=== PATIENT | female | born 1990 | race Caucasian/White ===

== ENCOUNTER 2021-07-15 11:14 | Inpatient (IN) | payer BC ==
[2021-07-15] MEDS ORDERED: Acetaminophen 500 MG TAB PO PRN (11:24)
[2021-07-15] MEDS ORDERED: Ondansetron PF 4 MG/2 ML Vial IVP PRN (11:24)
[2021-07-15] MEDS ORDERED: Promethazine HCl 25 MG/ML VIAL IM PRN (11:24)
[2021-07-15 12:09] VITALS: BMI 32.4
[2021-07-15] MEDS: hydrALAZINE 20 MG/ML VIAL SLOW IVP PRN ×3 (12:45→15:44)
[2021-07-15] MEDS: Lactated Ringer's 1,000 ML IV SCH (12:55)
[2021-07-15] MEDS ORDERED: Labetalol HCl 100 MG/20 ML VIAL SLOW IVP SCH (13:15)
[2021-07-15] MEDS ORDERED: Labetalol HCl 100 MG/20 ML VIAL ONE (13:16)
[2021-07-15 13:17] LABS: Mean Corpuscular Hemoglobin 31.3 pg (27.0-33.0); Mean Corpuscular Volume 89.5 fl (81.6-98.3); Mean Platelet Volume 9.8 fl (7.4-10.4); Platelet Count 220 10x3/uL (150-450); RBC Distribution Width 12.7 % (11.5-14.5); Red Blood Cell (RBC) Count 3.51 10x6/uL (3.90-5.03); White Blood Cell (WBC) Count 9.9 10x3/uL (3.5-10.5)
[2021-07-15 13:52] LABS: Syphilis Antibody Nonreactive (Nonreactive); Syphilis Antibody Index 0.04 S/CO (<1.00 Non-Reactive)
[2021-07-15 13:52] LABS: HIV (1/2) Antibody/Antigen Non-Reactive (NonReactive); HIV 1/2 INDEX 0.08 S/CO (<1.00); Hep B Surf Ag Non-Reactive S/CO (NonReactive)
[2021-07-15 14:03] LABS: HBSAg Index 0.22 S/CO (0-0.99)
[2021-07-15 14:21] LABS: Uric Acid 4.9 mg/dL (2.6-6.0)
[2021-07-15 14:57] LABS: Creatinine, Urine Less than 20.00 mg/dL (47-110); Protein, Urine Random Quant Less than 10 mg/dL (1-14)
[2021-07-15] MEDS ORDERED: Labetalol HCl 200 MG TAB PO SCH (15:30)
[2021-07-15 15:35] LABS: SARS-CoV-2 NAA Rapid Test Not Detected (NotDetected)
[2021-07-15] MEDS ORDERED: Lidocaine 1% (PF) 30 ML VIAL SC PRN (15:37)
[2021-07-15] MEDS: Labetalol HCl 200 MG TAB PO SCH ×2 (15:43→23:34)
[2021-07-15] MEDS ORDERED: NS w/ Oxytocin 30 units 500 ML IV SCH ×2 (15:45)
[2021-07-15] MEDS ORDERED: Penicillin G Potassium 5 MILL.UNITS in Sodium Chloride 0.9% 100 ML IVPB SCH (17:00)
[2021-07-15 17:07] LABS: Hemoglobin 10.7 g/dL (12.0-15.5); Mean Corpuscular HGB CONC 35.3 g/dL (32.0-36.0); Mean Corpuscular Hemoglobin 31.6 pg (27.0-33.0); Mean Corpuscular Volume 89.4 fl (81.6-98.3); Mean Platelet Volume 9.8 fl (7.4-10.4); Platelet Count 182 10x3/uL (150-450); RBC Distribution Width 12.6 % (11.5-14.5); Red Blood Cell (RBC) Count 3.39 10x6/uL (3.90-5.03); White Blood Cell (WBC) Count 11.1 10x3/uL (3.5-10.5)
[2021-07-15 18:05] LABS: Syphilis Antibody Nonreactive (Nonreactive); Syphilis Antibody Index 0.04 S/CO (<1.00 Non-Reactive)
[2021-07-15 18:05] LABS: Hep B Surf Ag Non-Reactive S/CO (NonReactive)
[2021-07-15 18:11] LABS: HBSAg Index 0.21 S/CO (0-0.99)
[2021-07-15] MEDS ORDERED: Sodium Chloride 0.9% 50 ML ONE (21:26)
[2021-07-15] MEDS: Penicillin G Potassium 2.5 MILL.UNITS in Sodium Chloride 0.9% 50 ML IVPB SCH (21:35)
[2021-07-15] MEDS: Misoprostol 100 MCG TAB VAG SCH (22:35)
[2021-07-16] MEDS: Misoprostol 100 MCG TAB VAG SCH ×4 (01:45→21:21)
[2021-07-16] MEDS: Penicillin G Potassium 2.5 MILL.UNITS in Sodium Chloride 0.9% 50 ML IVPB SCH (01:45)
[2021-07-16] MEDS: Penicillin G 2.5 MILL.units 2.5 MILL.UNITS in Premix Bag 1 BAG IVPB SCH ×2 (05:48→21:21)
[2021-07-16] MEDS ORDERED: Morphine PF 10 MG/10 ML VIAL ONE (09:45)
[2021-07-16] MEDS ORDERED: Phenylephrine 10 MG/ML VIAL ONE (09:45)
[2021-07-16] MEDS ORDERED: Ondansetron PF 4 MG/2 ML Vial ONE (09:45)
[2021-07-16] MEDS ORDERED: Ketorolac Tromethamine 30 MG/ML VIAL ONE (09:45)
[2021-07-16] MEDS ORDERED: Fentanyl 100 MCG/2 ML VIAL ONE (09:45)
[2021-07-16] MEDS ORDERED: Oxytocin 10 UNITS/ML VIAL ONE (09:45)
[2021-07-16] MEDS ORDERED: Promethazine HCl 25 MG SUPP PR PRN (11:20)
[2021-07-16] MEDS ORDERED: Ondansetron PF 4 MG/2 ML Vial IVP PRN ×2 (11:20→13:24)
[2021-07-16] MEDS ORDERED: Naloxone HCl 0.4 mg/ml Vial IV PRN (11:20)
[2021-07-16] MEDS ORDERED: diphenhydrAMINE 50 MG/ML VIAL IVP PRN (11:20)
[2021-07-16] MEDS ORDERED: Hydrocerin (Eucerin) Cream 120 gm Jar TOP PRN (11:20)
[2021-07-16] MEDS ORDERED: HYDROmorphone 2 MG/ML VIAL SLOW IVP PRN (11:20)
[2021-07-16] MEDS ORDERED: Ondansetron HCl/PF 4 MG/2 ML Vial IVP PRN (11:20)
[2021-07-16] MEDS ORDERED: Fentanyl 100 MCG/2 ML VIAL SLOW IVP PRN (11:20)
[2021-07-16] MEDS ORDERED: Meperidine HCl/PF 25 MG/ML VIAL SLOW IVP PRN (11:20)
[2021-07-16] MEDS ORDERED: Naloxone HCl 0.4 mg/ml Vial IVP PRN ×2 (11:20)
[2021-07-16] MEDS ORDERED: Promethazine HCl 25 MG/ML VIAL IM PRN ×2 (11:20→13:24)
[2021-07-16] MEDS ORDERED: Communication Order-Pharmacy FS SCH (11:30)
[2021-07-16] MEDS ORDERED: Ketorolac Tromethamine 30 MG/ML VIAL IVP SCH (11:30)
[2021-07-16 11:37] LABS: RapidComm Collect By CP.BR1
[2021-07-16] MEDS: Ketorolac Tromethamine 30 MG/ML VIAL IVP PRN (12:41)
[2021-07-16] MEDS ORDERED: hydrALAZINE 20 MG/ML VIAL SLOW IVP PRN (13:24)
[2021-07-16] MEDS ORDERED: NS w/ Oxytocin 30 units 500 ML IV SCH (13:24)
[2021-07-16] MEDS ORDERED: Acetaminophen 325 MG TAB PO PRN (13:24)
[2021-07-16] MEDS ORDERED: Boostrix 0.5 ML (Tdap) VIAL IM ONE (13:24)
[2021-07-16] MEDS ORDERED: Lanolin Ointment 7 GM TUBE TOP PRN (13:24)
[2021-07-16] MEDS ORDERED: Simethicone Chewable 80 MG TAB PO PRN (13:24)
[2021-07-16] MEDS ORDERED: diphenhydrAMINE 25 MG CAP PO PRN (13:24)
[2021-07-16] MEDS: Labetalol HCl 200 MG TAB PO SCH ×2 (20:18→21:21)
[2021-07-16] MEDS: Docusate 100 MG CAP PO SCH (21:19)
[2021-07-16] MEDS: Lactated Ringer's 1,000 ML IV SCH (21:20)
[2021-07-16] MEDS ORDERED: HYDROcodone/Acetaminophen 5/325 mg Tablet PO PRN ×2 (23:30)
[2021-07-16] MEDS ORDERED: Meperidine HCl/PF 25 MG/ML VIAL IM PRN (23:30)
[2021-07-16] MEDS ORDERED: Zolpidem Tartrate 5 MG TAB PO PRN (23:30)
[2021-07-17 04:37] LABS: Hemoglobin 9.7 g/dL (12.0-15.5); Mean Corpuscular Hemoglobin 31.7 pg (27.0-33.0); Mean Corpuscular Volume 90.5 fl (81.6-98.3); Mean Platelet Volume 9.8 fl (7.4-10.4); Platelet Count 167 10x3/uL (150-450); RBC Distribution Width 12.8 % (11.5-14.5); Red Blood Cell (RBC) Count 3.06 10x6/uL (3.90-5.03); White Blood Cell (WBC) Count 11.9 10x3/uL (3.5-10.5)
[2021-07-17] MEDS: Ketorolac Tromethamine 30 MG/ML VIAL IVP PRN (05:31)
[2021-07-17] MEDS: Docusate 100 MG CAP PO SCH ×2 (08:20→21:14)
[2021-07-17] MEDS: Labetalol HCl 200 MG TAB PO SCH ×3 (08:20→21:15)
[2021-07-17] MEDS: Prenatal Vitamin 1 TAB PO SCH (08:20)
[2021-07-17] MEDS: Ibuprofen 800 MG TAB PO SCH ×2 (13:23→21:14)
[2021-07-18] MEDS: Ibuprofen 800 MG TAB PO SCH ×3 (05:06→21:18)
[2021-07-18] MEDS: Prenatal Vitamin 1 TAB PO SCH (10:05)
[2021-07-18] MEDS: Labetalol HCl 200 MG TAB PO SCH ×3 (10:05→21:18)
[2021-07-18] MEDS: Docusate 100 MG CAP PO SCH ×2 (10:05→21:18)
[2021-07-19] MEDS: Ibuprofen 800 MG TAB PO SCH (05:27)
[2021-07-19] MEDS: Prenatal Vitamin 1 TAB PO SCH (09:34)
[2021-07-19] MEDS: Docusate 100 MG CAP PO SCH (09:34)
[2021-07-19 11:31] VITALS: BP 150/70; TEMP 98.6
== END 2021-07-19 12:40 | disposition home or self-care (01) | DRG 786 ==
LOC: CSHLD/OP 11:14 → CSHLD 16:23 → CSHPP 07-16 13:45
PROVIDERS: ADMIT Obstetrics & Gynecology; ATTEND Obstetrics & Gynecology
PROC: 10D00Z1 Extraction of Products of Conception, Low, Open Approach (ICD-10-PCS; principal; 2021-07-16)
PROC: 10907ZC Drainage of Amniotic Fluid, Therapeutic from Products of Conception, Via Natural or Artificial Opening (ICD-10-PCS; 2021-07-16)
PROC: 3E033VJ Introduction of Other Hormone into Peripheral Vein, Percutaneous Approach (ICD-10-PCS; 2021-07-16)
DX: O32.1XX0 Maternal care for breech presentation, not applicable or unspecified (principal); O60.14X0 Preterm labor third trimester with preterm delivery third trimester, not applicable or unspecified; O14.94 Unspecified pre-eclampsia, complicating childbirth; O13.4 Gestational [pregnancy-induced] hypertension without significant proteinuria, complicating childbirth; Z3A.36 36 weeks gestation of pregnancy; Z37.0 Single live birth; Z20.822 Contact with and (suspected) exposure to COVID-19
CPT/HCPCS: 36415; 51702; 82570; 82805; 83615; 84156; 84450; 84460; 84550; 85027; 86780; 86850; 86900; 86901; 87340; 87389; 99285; J0360; J1885; J2274; J2370; J2405; J2540; J2590; J3010; J3490; U0002